=== PATIENT | male | born 1950 | race Caucasian/White ===

== ENCOUNTER 2016-05-27 20:47 | Emergency (ER) ==
[2016-05-27 20:53] VITALS: BP 173/77; TEMP 97.6; BMI 25.8
[2016-05-27] MEDS ORDERED: BENADRYL IM STA (21:09)
[2016-05-27] MEDS ORDERED: TAGAMET PO STA (21:09)
[2016-05-27] MEDS ORDERED: DECADRON 4 MG/ML SDV IM STA (21:09)
--- NOTE | 2016-05-27 21:57 | ED.PDOC ---
General ED Provider: Dr. SRINIVAS LOZOYA-ER Chief Complaint: Eye Problem Stated Complaint: his eye is swollen and itchy--hes been mowing Time Seen by Physician: 20:50 Mode of Arrival: Walk-In Information Source: Patient Exam Limitations: No limitations Primary Care Provider: YARA EDUARDO Nursing and Triage Documentation Reviewed and Agree: Yes EENT Complaint Exam - Eye Complaint/Exam Onset/Duration: a few hours Symptoms Are: Still present Timing: Constant Initial Severity: Mild Current Severity: Mild Location: Discreet, Right Aggravating: Reports: None Alleviating: Reports: None Associated Signs and Symptoms: Reports: Clear drainage, Swelling. Denies: Photophobia, Purulent drainage, Vision impairment, Fever Eye Surgical History: Reports: None Penetrating Injury Risk Factors: None Globe Rupture Risk Factors: None Optic Artery Occlusion Risk Factors: None Visual Acuity Right Eye: 20/15 Visual Acuity Left Eye: 20/20 Visual Field: Normal Extraocular Movement: Normal Orbit Findings: Normal Globe Findings: Intact Lid Findings: Normal Corneal Findings: Clear Fundi: Normal Slit Lamp Used: No Differential Diagnoses: Other Review of Systems - Review Of Systems Constitutional: Reports: No symptoms Eyes: Reports: Other Ears, Nose, Mouth, Throat: Reports: No symptoms Respiratory: Reports: No symptoms Cardiac: Reports: No symptoms GI: Reports: No symptoms : Reports: No symptoms Musculoskeletal: Reports: No symptoms Skin: Reports: No symptoms Neurological: Reports: No symptoms Endocrine: Reports: No symptoms Hematologic/Lymphatic: Reports: No symptoms All Other Systems: Reviewed and Negative Past Medical History - Past Medical History Previously Healthy: Yes Endocrine: Reports: None Cardiovascular: Reports: None Respiratory: Reports: None Hematological: Reports: None Gastrointestinal: Reports: None Genitourinary: Reports: None Neuro/Psych: Reports: None Musculoskeletal: Reports: None Cancer: Reports: None - Surgical History General Surgical History: Reports: None - Family History Family History: Reports: None - Social History Smoking Status: Never smoker Hx Substance Use: No Alcohol Screening: None Lives: With family - Immunizations Tetanus Shot up to Date: Yes Physical Exam - Physical Exam Appearance: Well-appearing Eyes: CHIP, EOMI, Conjunctiva clear ENT: Ears normal, Nose normal, Oropharynx normal Neck: Supple Respiratory: Airway patent, Breath sounds clear, Breath sounds equal, Respirations nonlabored Cardiovascular: RRR GI/: Soft Musculoskeletal: Normal strength, ROM intact, No edema, No calf tenderness Skin: Warm, Dry, Normal color Neurological: Sensation intact Psychiatric: Affect appropriate, Mood appropriate Re-Evaluation - Re-Evaluation Time of Re-Evaluation: 21:57 Status: Improved (right eye swelling has resolved) Vital Signs Stable: Yes Pain Level: 0 Appearance: NAD Lungs: Clear Skin: Warm and Dry Neuro: Alert and Oriented X3 CV: RRR Critical Care Note - Critical Care Note Total Time (mins): 0 Course - Course Orders, Labs, Meds: Orders Category Date Time Status Ice Pack [ED APPLY ICE AFFECTED AREA] .ONCE EMERGENCY 05/27/16 21:09 Active Cimetidine [Tagamet] MEDS 05/27/16 21:09 Discontinued 400 mg PO ONCE STA Dexamethasone 4 mg/ml Inj [Decadron 4 mg/ml Sdv] MEDS 05/27/16 21:09 Discontinued 8 mg IM ONCE STA Diphenhydramine Inj [Benadryl] MEDS 05/27/16 21:09 Discontinued 50 mg IM ONCE STA Medications Discontinued Medications Generic Name Dose Route Start Last Admin Trade Name Nehemias PRN Reason Stop Dose Admin Cimetidine 400 mg 05/27/16 21:09 05/27/16 21:16 Tagamet PO 05/27/16 21:10 400 mg ONCE STA Administration Dexamethasone Sodium Phosphate 8 mg 05/27/16 21:09 05/27/16 21:19 Decadron 4 Mg/Ml Sdv IM 05/27/16 21:10 8 mg ONCE STA Administration Diphenhydramine HCl 50 mg 05/27/16 21:09 05/27/16 21:16 Benadryl IM 05/27/16 21:10 50 mg ONCE STA Administration Vital Signs: Temp Pulse Resp BP Pulse Ox 05/27/16 20:48 97.6 F 100 H 16 173/77 H 96 Departure - Departure Time of Disposition: 21:57 Disposition: HOME SELF-CARE Discharge Problem: Allergic conjunctivitis Qualifiers: Laterality: right Qualifier Code: (H10.11) Acute atopic conjunctivitis, right eye Instructions: Conjunctivitis (ED) Condition: Good Pt referred to PMD for follow-up: Yes Additional Instructions: f/u wtih dr eduardo this week Allergies/Adverse Reactions: Allergies amoxicillin Adverse Reaction (Verified 07/31/15 18:12) Home Medications: Ambulatory Orders Ciprofloxacin HCl [Cipro] 500 mg PO BID #14 tablet 07/31/15 Glyburide/Metformin HCl [Glucovance 5-500 mg Tablet] 1 tab TID 07/31/15 Hydrochlorothiazide 25 mg DAILY 07/31/15 Mesalamine [Pentasa] 1,000 mg BID 07/31/15 Trandolapril/Verapamil HCl [Trandolapr-Verapam ER 4-240 mg] 1 tab DAILY Glyburide 3 mg PO BID 09/30/15 Metformin HCl 500 mg PO BID 09/30/15 Disposition Discussed With: Patient, Family
== END 2016-05-27 22:08 | disposition home or self-care (01) ==
LOC: ED 20:47
DX: H10.11 Acute atopic conjunctivitis, right eye (principal)
CPT/HCPCS: 96372; 99283

== ENCOUNTER 2017-07-11 06:40 | Day surgery (SDC) | payer OTHER ==
[2017-07-11] MEDS ORDERED: LIDOCAINE 1% 20 ML MDV ID STA (07:17)
[2017-07-11] MEDS ORDERED: DIPRIVAN 20 ML VIAL IVP ONE (07:50)
[2017-07-11] MEDS ORDERED: VERSED ONE (07:50)
[2017-07-11 14:35] VITALS: BP 108/67; TEMP 98.7
--- NOTE | 2017-07-12 08:28 | OP ---
PROCEDURE: COLONOSCOPY TO THE CECUM WITH BIOPSY AND SNARE POLYPECTOMY. ENDOSCOPIST: Marv OTERO M.D. INDICATION: CROHN'S DISEASE INSTRUMENT: PCFH-190. MEDICATION: PER ANESTHESIA. PROCEDURE: The patient was positioned for colonoscopy. The digital rectal exam was negative. The colonoscope was inserted through the anus and advanced to the cecum. Ubly Bowel Prep Score 2+2+3=7. The cecum was identified. There was a significant inflammatory change in the right colon into the transverse colon. This would be a moderate colitis. I was unable to enter the TI. Right colitic biopsies were obtained. At 70cm I found a small raised area which we biopsied using snare polypectomy. Two small areas at 40cm were removed using snare cautery. A small in the rectum which appeared hypoplastic was removed using snare cautery. There was no significant inflammation noted in the distal 30-40cm of the colon. The retroflex exam was otherwise normal. The patient tolerated nicola procedure without immediate complication. PLAN: 1. We will get a CT enterography and have him followup with me in 4-6 weeks 2. Get labs today 3. Will potentially change a Humira level to see if we need to increase his dose or decrease the interval of dosing. CC: Dr. Bubba HENRIQUEZ
== END 2017-07-11 09:35 | disposition home or self-care (01) ==
LOC: SURG 06:40
PROVIDERS: ATTEND Internal Medicine Gastroenterology
DX: K50.90 Crohn's disease, unspecified, without complications (principal); K52.9 Noninfective gastroenteritis and colitis, unspecified; K63.5 Polyp of colon; D12.7 Benign neoplasm of rectosigmoid junction; K62.1 Rectal polyp
CPT/HCPCS: 36415; 80053; 85008; 85025; 85651; 86140